=== PATIENT | female | born 1980 | race Caucasian/White ===

== ENCOUNTER 2018-09-08 22:07 | Emergency (ER) | payer MEDICAID ==
[~2018-09-08] VITALS: Wt 69.0 kg
[~2018-09-08 22:07] MED LIST: LEVO500V2 IJ; PREN1TAB17 PO
[2018-09-08 22:11] VITALS: BP 140/71; PULSE 85; RESP 22
[2018-09-08] MEDS ORDERED: LIDOCAINE/MYLANTA 40 ML BTL PO STA (22:46)
[2018-09-08] MEDS ORDERED: FAMOTIDINE 20 MG TAB PO STA (22:46)
[2018-09-08] MEDS ORDERED: METOCLOPRAMIDE 10 MG TAB PO ONE (23:00)
--- NOTE | 2018-09-08 23:37 | ERD ---
ER Documentation Chief Complaint Chief Complaint SUDDEN ONSET 1HR SCHEDULING COORDINATOR EPIGASTRIC PAIN WITH VOMITING. NO DIARRHEA NO FEVERS. HPI 38-year-old female presenting with epigastric pain for the past 2 days, worse today. She does state she has a history of gastritis and has been having worsening symptoms lately. Yesterday she did eat tacos with raw onions, making her pain worse. She has been vomiting as well, nonbloody and nonbilious vomit. No associated fever, chills, diarrhea or constipation. She does have associated belching. The pain occasionally radiates to her back. She describes it as a burning, strong pain radiating up the center of her chest as well. Worse with eating. No dysuria or hematuria. ROS All systems reviewed and are negative except as per history of present illness. Medications Home Meds Active Scripts Sucralfate* (Carafate*) 1 Gm Tab, 1 GM PO AC MEALS AND BEDTIME, #30 TAB Prov:JHON CHOI MD 09/09/18 Metoclopramide* (Reglan*) 10 Mg Tablet, 10 MG PO Q6 PRN for NAUSEA AND/OR VOMITING, #10 TAB Prov:JHON CHOI MD 09/09/18 Famotidine* (Pepcid*) 20 Mg Tablet, 20 MG PO BID for 14 Days, TAB Prov:JHON CHOI MD 09/09/18 Reported Medications Levothyroxine Sodium* (Levothyroxine* INJ) 500 Mcg Soln, 500 MCG IJ DAILY 02/28/13 Vit-Iron Fumarate-FA ( Tablet) 1 Each Tablet, 1 EACH PO DAILY 02/28/13 Allergies Allergies: Coded Allergies: No Known Drug Allergy (Verified Allergy, Unknown, 03/25/07) PMhx/Soc History of Surgery: Yes (C SEC X'S 2) Anesthesia Reaction: No Hx Cardiac Disorders: Yes (DYSLIP) Hx Miscellaneous Medical Probl: Yes (Gastritis) Hx Alcohol Use: No Hx Substance Use: No Hx Tobacco Use: No Smoking Status: Never smoker FmHx Family History: No diabetes Physical Exam Vitals Vital Signs Date Temp Pulse Resp B/P (MAP) Pulse Ox O2 O2 Flow FiO2 Time Delivery Rate 09/08/18 99.0 85 22 140/71 99 22:11 (94) Physical Exam Const: Appears to be in mild distress secondary to pain. Nontoxic Head: Atraumatic Eyes: Normal Conjunctiva ENT: Normal External Ears, Nose and Mouth. Neck: Full range of motion. No meningismus. Resp: Clear to auscultation bilaterally Cardio: Regular rate and rhythm, no murmurs Abd: Soft, non tender, non distended. Negative Brock sign. No McBurney's point tenderness. Normal bowel sounds Skin: No petechiae or rashes Back: No midline or flank tenderness Ext: No cyanosis, or edema Neur: Awake and alert Psych: Normal Mood and Affect Result Diagram: 09/08/18230209/08/18 230 Results 24 hrs Laboratory Tests Test 09/08/18 23:02 09/08/18 23:03 POC Beta HCG, Qualitative NEGATIVE White Blood Count 8.8 10^3/ul Red Blood Count 4.03 10^6/ul Hemoglobin 11.3 g/dl Hematocrit 35.5 % Mean Corpuscular Volume 88.1 fl Mean Corpuscular Hemoglobin 28.0 pg Mean Corpuscular Hemoglobin Concent 31.8 g/dl Red Cell Distribution Width 13.5 % Platelet Count 219 10^3/UL Mean Platelet Volume 11.6 fl Immature Granulocytes % 0.200 % Neutrophils % 62.5 % Lymphocytes % 25.3 % Monocytes % 8.6 % Eosinophils % 2.9 % Basophils % 0.5 % Nucleated Red Blood Cells % 0.0 /100WBC Immature Granulocytes # 0.020 10^3/ul Neutrophils # 5.5 10^3/ul Lymphocytes # 2.2 10^3/ul Monocytes # 0.8 10^3/ul Eosinophils # 0.3 10^3/ul Basophils # 0.0 10^3/ul Nucleated Red Blood Cells # 0.0 10^3/ul Sodium Level 142 mmol/L Potassium Level 3.9 mmol/L Chloride Level 103 mmol/L Carbon Dioxide Level 29 mmol/L Anion Gap 10 Blood Urea Nitrogen 21 mg/dl Creatinine 0.72 mg/dl Est Glomerular Filtrat Rate mL/min > 60 mL/min Glucose Level 92 mg/dl Calcium Level 9.3 mg/dl Total Bilirubin 0.4 mg/dl Direct Bilirubin 0.00 mg/dl Indirect Bilirubin 0.4 mg/dl Aspartate Amino Transf (AST/SGOT) 61 IU/L Alanine Aminotransferase (ALT/SGPT) 29 IU/L Alkaline Phosphatase 65 IU/L Total Protein 7.7 g/dl Albumin 4.2 g/dl Globulin 3.50 g/dl Albumin/Globulin Ratio 1.20 Lipase 70 U/L Current Medications Medications Dose Sig/Ariana Start Time Status Last (Trade) Ordered Route PRN Stop Time Admin Dose Reason Admin Famotidine 20 mg ONCE STAT 09/08/18 DC 09/08/18 (Pepcid) PO 22:46 23:09 09/08/18 22:48 40 ml ONCE STAT 09/08/18 DC 09/08/18 Miscellaneous PO 22:46 23:09 Medication 09/08/18 22:48 (Gi Cocktail (2)) 10 mg ONCE ONCE 09/08/18 DC 09/08/18 Metoclopramid PO 23:00 23:09 e HCl 09/08/18 23:01 (Reglan) Procedures/MDM EMERGENT LABS AND DIAGNOSTIC STUDIES: Lab Results above were reviewed and interpreted by me. CBC: no anemia or evidence of infection CMP: No evidence of clinically significant electrolyte abnormality, acidosis, renal failure, hypoglycemia, liver disease, or biliary obstruction Lipase: no evidence of pancreatitis Initial Nursing notes reviewed. Previous Medical Records requested via the Electronic Health Record. EMERGENCY DEPARTMENT COURSE / MEDICAL DECISION MAKING: Patient presents with worsening epigastric pain, most consistent with gastritis versus peptic ulcer. Low saba I do not think imaging is indicated at this time. Patient was treated with medications for gastritis with improvement of her symptoms. I will discharge her with Pepcid, Reglan, and sucralfate. I recommended follow-up with her primary care doctor to get a referral to GI as she has never had a gas endoscopy. Patient understands discharge plan. Return precautions were given. Patient's blood pressure was elevated (>120/80) but appears stable without evidence of hypertensive emergency or urgency. The patient was counseled about the risks of hypertension and urged to pursue outpatient monitoring and therapy within a week with their primary care physician. Departure Diagnosis: Primary Impression: Gastritis Gastritis type: unspecified gastritis Chronicity: unspecified Gastritis bleeding: without bleeding Qualified Codes: K29.70 - Gastritis, unspecified, without bleeding Condition: Stable JHON CHOI MD Sep 08, 2018 23:37
[2018-09-09] MEDS ORDERED: METO10TA92 PO (00:07)
[2018-09-09] MEDS ORDERED: SUCR1TAB56 PO (00:07)
[2018-09-09] MEDS ORDERED: FAMO-96 PO (00:07)
== END 2018-09-09 00:32 | disposition home or self-care (01) ==
LOC: FTE 22:07
DX: K29.70 Gastritis, unspecified, without bleeding (principal)
CPT/HCPCS: 36415; 80053; 81025; 83690; 85025; Z7502; Z7610; 99283

== ENCOUNTER 2019-01-07 17:15 | Emergency (ER) | payer MEDICAID ==
[~2019-01-07] VITALS: Ht 162.6 cm; Wt 65.7 kg
[~2019-01-07 17:15] MED LIST changes: +BISM262T59 PO; +FAMO-96 PO; +METO10TA92 PO; +ONDA4TAB14 PO; +SUCR1TAB56 PO
[2019-01-07 17:18] VITALS: Ht 162.6 cm; Wt 65.7 kg
[2019-01-07] MEDS ORDERED: ONDANSETRON (ODT) 4 MG TAB ODT STA (17:41)
[2019-01-07] MEDS ORDERED: LIDOCAINE/MYLANTA 40 ML BTL PO STA (17:41)
[2019-01-07] MEDS ORDERED: FAMOTIDINE 20 MG TAB PO STA (17:41)
[2019-01-07] MEDS ORDERED: KETOROLAC 30 MG INJ IM STA (17:44)
--- NOTE | 2019-01-07 18:07 | ERD ---
ER Documentation Chief Complaint Chief Complaint pt reports n/v after eating spicey food, hx gastritis HPI 38-year-old female with past medical history of hypothyroidism, hyperlipidemia, gastritis who presents with complaint of nausea and vomiting after eating spicy meal approximately 1 hour before ED arrival. States she was having some means with some hot peppers in it and gradually developed worsening epigastric abdominal pain and discomfort, persistent nausea with one episodes of nonbilious nonbloody vomiting. She had similar presentation in August of this year treated with p.o. medications with improvement in her symptoms. She otherwise denies fevers, chills, recent illness, chest pain, shortness of breath, radiation of abdominal pain, flank pain, diarrhea, urinary symptoms such as burning or itching. ROS All systems reviewed and are negative except as per history of present illness. Medications Home Meds Active Scripts Sucralfate* (Carafate*) 1 Gm Tab, 1 GM PO QID for 7 Days, TAB Prov:DANNA NGUYEN PA-C 01/07/19 Ondansetron (Ondansetron Odt) 4 Mg Tab.rapdis, 4 MG PO Q6H PRN for NAUSEA AND/OR VOMITING, #10 TAB Prov:DANNA NGUYEN PA-C 01/07/19 Famotidine* (Pepcid*) 20 Mg Tablet, 20 MG PO BID for 4 Days, TAB Prov:DANNA NGUYEN PA-C 01/07/19 Sucralfate* (Carafate*) 1 Gm Tab, 1 GM PO AC MEALS AND BEDTIME, #30 TAB Prov:JHON CHOI MD 09/09/18 Metoclopramide* (Reglan*) 10 Mg Tablet, 10 MG PO Q6 PRN for NAUSEA AND/OR VO MITING, #10 TAB Prov:JHON CHOI MD 09/09/18 Famotidine* (Pepcid*) 20 Mg Tablet, 20 MG PO BID for 14 Days, TAB Prov:JHON CHOI MD 09/09/18 Reported Medications Levothyroxine Sodium* (Levothyroxine* INJ) 500 Mcg Soln, 500 MCG IJ DAILY 02/28/13 Vit-Iron Fumarate-FA ( Tablet) 1 Each Tablet, 1 EACH PO DAILY 02/28/13 Allergies Allergies: Coded Allergies: No Known Drug Allergy (Verified Allergy, Unknown, 03/25/07) PMhx/Soc History of Surgery: Yes (C SEC X'S 2) Anesthesia Reaction: No Hx Cardiac Disorders: Yes (DYSLIP) Hx Miscellaneous Medical Probl: Yes (Gastritis) Hx Alcohol Use: No Hx Substance Use: No Hx Tobacco Use: No Smoking Status: Never smoker FmHx Family History: No diabetes, No coronary disease, No other Physical Exam Vitals Vital Signs Date Temp Pulse Resp B/P (MAP) Pulse Ox O2 O2 Flow FiO2 Time Delivery Rate 01/07/19 99.4 77 24 133/83 100 17:18 (100) Physical Exam I have reviewed the triage vital signs. Const: Well nourished, well developed, appears stated age Eyes: PERRL, no conjunctival injection HENT: NCAT, Neck supple without meningismus CV: RRR, Warm, well-perfused extremities RESP: CTAB, Unlabored respiratory effort GI: soft, non-tender, non-distended, no masses MSK: No gross deformities appreciated Skin: Warm, dry. No rashes Neuro: grossly non focal Psych: Appropriate mood and affect. Results 24 hrs Laboratory Tests Test 01/07/19 18:13 POC Beta HCG, Qualitative NEGATIVE Current Medications Medications Dose Sig/Ariana Start Time Status Last (Trade) Ordered Route PRN Stop Time Admin Dose Reason Admin Famotidine 20 mg ONCE STAT 01/07/19 DC 01/07/19 (Pepcid) PO 17:41 17:48 01/07/19 17:43 40 ml ONCE STAT 01/07/19 DC 01/07/19 Miscellaneous PO 17:41 17:48 Medication 01/07/19 17:43 (Gi Cocktail (2)) Ondansetron 4 mg ONCE STAT 01/07/19 DC 01/07/19 HCl (Zofran ODT 17:41 17:48 Odt) 01/07/19 17:43 Ketorolac 30 mg ONCE STAT 01/07/19 DC 01/07/19 Tromethamine IM 17:44 18:14 (Toradol) 01/07/19 17:45 Procedures/MDM 38-year-old female presents with complaint of epigastric abdominal pain and nausea and vomiting after eating spicy food. Symptoms likely secondary to gastritis. I have low suspicion for any acute intra-abdominal or intrapelvic process warranting further emergent care work-up at this time. I do not feel imaging is warranted given exam and history. I do not feel labs are warranted given exam and history. She does not exhibit any red flag symptoms warranting further work-up or admission. Patient symptoms improved in ED with symptomatic treatment. Will discharge with appropriate GI cocktail, Zofran, sucralfate, Pepcid. Strict return precautions explained in detail. DISPOSITION PLAN: We discussed follow up with the patient's primary care doctor within 24 to 48 hours. Patient counseled regarding my diagnostic impression and care plan. Prior to discharge all questions answered. Pt agrees with treatment plan and u nderstands strict return precautions. Precautionary instructions provided including instructions to return to the ER if not improving or for any worsening or changing symptoms or concerns. Disclaimer: Inadvertent spelling and grammatical errors are likely due to EHR/dictation software use and do not reflect on the overall quality of patient care. Also, please note that the electronic time recorded on this note does not necessarily reflect the actual time of the patient encounter. Departure Diagnosis: Primary Impression: Vomiting Condition: Stable Patient Instructions: Gastritis (Adult) Referrals: [facility] YOU HAVE RECEIVED A MEDICAL SCREENING EXAM AND THE RESULTS INDICATE THAT YOU DO NOT HAVE A CONDITION THAT REQUIRES URGENT TREATMENT IN THE EMERGENCY DEPARTMENT. FURTHER EVALUATION AND TREATMENT OF YOUR CONDITION CAN WAIT UNTIL YOU ARE SEEN IN YOUR DOCTORS OFFICE WITHIN THE NEXT 1-2 DAYS. IT IS YOUR RESPONSIBILITY TO MAKE AN APPOINTMENT FOR FOLOW-UP CARE. IF YOU HAVE A PRIMARY DOCTOR --you should call your primary doctor and schedule an appointment IF YOU DO NOT HAVE A PRIMARY DOCTOR YOU CAN CALL OUR PHYSICIAN REFERRAL HOTLINE AT IF YOU CAN NOT AFFORD TO SEE A PHYSICIAN YOU CAN CHOSE FROM THE FOLLOWING [facility] [address] [facility] [address] [facility] [facility] [address] [facility] [address] [facility]. [facility] [address] [facility]. [facility]. [address] Additional Instructions: Call your primary care doctor TOMORROW for an appointment during the next 2-3 days.See the doctor sooner or return here if your condition worsens before your appointment time. DANNA NGUYEN PA-C Jan 07, 2019 18:07
[2019-01-07 18:44] VITALS: BP 116/79; PULSE 64; RESP 18
== END 2019-01-07 18:45 | disposition home or self-care (01) ==
LOC: FTE 17:15
DX: R11.2 Nausea with vomiting, unspecified (principal); E03.9 Hypothyroidism, unspecified
CPT/HCPCS: 81025; 96372; J1885; Z7502; Z7610